=== PATIENT | male | born 1995 | race American Indian/Alaskan Native ===

== ENCOUNTER 2021-04-30 11:06 | Emergency (ER) | payer SELFPAY ==
--- NOTE | 2021-04-30 13:12 | Emergency Department Report ---
ED General Adult HPI - General Chief complaint: Chest Pain Stated complaint: CHEST PAIN/BP HIGH Time Seen by Provider: 04/30/21 12:46 Source: patient Mode of arrival: Ambulatory Limitations: No Limitations - History of Present Illness Initial comments: 25-year-old male who denies any significant past medical history presents to the ER today with complaints of "slight" discomfort in his left chest and elevated blood pressure. Patient states that this chest discomfort started 1 week ago. States it has been intermittent and describes it as sharp in nature. He is unable to describe any worsening factors, but he states that it does improve sometimes after taking aspirin. He reports intermittent episodes of shortness of breath which occurs sometimes with exertion and a mild intermittent dry cough. He denies any wheezing, nausea, vomiting, abdominal pain, fever chills or URI symptoms. He denies any lower extremity swelling or calf pain. Patient denies any history of tobacco use or any illicit drug use. He denies any history of CAD or family history of CAD. He denies history of PE or DVT or risk factors for PE or DVT. He does admit that he used to drink 1 beer daily, but stopped about a month ago and he also admits that he has been having intermittent episodes of where he he has been getting anxious, mainly right before going to work, but he has also noticed that happening on his days off. He denies any worsening stress than usual. He denies any underlying history of psych disorders. He states that he has noticed that his blood pressure has been "up-and-down over the past 2 weeks. The highest measured systolic blood pressure diagnosis was 140s today and highest measured diastolic blood pressure was 94. Complaint: Chest pain/ Elevated Blood pressure -: week(s) (1) - Related Data Allergies Allergy/AdvReac Type Severity Reaction Status Date / Time No Known Allergies Allergy Unverified 04/30/21 11:14 ED Review of Systems ROS: Stated complaint: CHEST PAIN/BP HIGH Other details as noted in HPI Comment: All other systems reviewed and negative Constitutional: denies: chills, fever Eyes: denies: eye pain, eye discharge, vision change ENT: denies: ear pain, throat pain Respiratory: shortness of breath. denies: cough, orthopnea, SOB with exertion, SOB at rest, stridor, wheezing Cardiovascular: chest pain. denies: palpitations, dyspnea on exertion, edema, syncope, paroxysmal nocturnal dyspnea Endocrine: no symptoms reported Gastrointestinal: denies: abdominal pain, nausea, vomiting, diarrhea, constipation, hematemesis, melena, hematochezia Genitourinary: denies: urgency, dysuria, frequency, hematuria, discharge, testicular pain, testicular mass Musculoskeletal: denies: back pain, joint swelling, arthralgia, myalgia Skin: denies: rash, lesions, change in color, change in hair/nails Neurological: denies: headache, weakness, numbness, paresthesias, confusion, abnormal gait, vertigo Psychiatric: denies: anxiety, depression, auditory hallucinations, visual hallucinations, homicidal thoughts, suicidal thoughts Hematological/Lymphatic: denies: easy bleeding, easy bruising, swollen glands ED Past Medical Hx - Past Medical History Previous Medical History?: No - Surgical History Past Surgical History?: No ED Physical Exam - General Limitations: No Limitations General appearance: alert, in no apparent distress, anxious - Head Head exam: Present: atraumatic, normocephalic, normal inspection - Eye Eye exam: Present: normal appearance, PERRL, EOMI Pupils: Present: normal accommodation - ENT ENT exam: Present: normal exam, mucous membranes moist - Neck Neck exam: Present: normal inspection, full ROM - Respiratory Respiratory exam: Present: normal lung sounds bilaterally. Absent: respiratory distress, wheezes, rales, rhonchi, stridor - Cardiovascular Cardiovascular Exam: Present: regular rate, normal rhythm, normal heart sounds - Extremities Exam Extremities exam: Present: normal inspection, full ROM. Absent: calf tenderness - Neurological Exam Neurological exam: Present: alert, oriented X3, CN II-XII intact, normal gait - Psychiatric Psychiatric exam: Present: normal affect, normal mood - Skin Skin exam: Present: intact ED Course Vital Signs 04/30/21 04/30/21 11:20 14:20 Temperature 98.5 F Pulse Rate 84 79 Respiratory 20 16 Rate Blood Pressure 130/83 Blood Pressure 142/87 [Right] O2 Sat by Pulse 99 100 Oximetry ED Medical Decision Making - EKG Data Rate: normal (80) No standard instances Rhythm: arrhythmia - EKG Data Interpretation: normal EKG - Radiology Data Radiology results: report reviewed Patient: NIKA MARTINES MR#: [id number] : 1995 Acct:[id number] Age/Sex: 25 / M ADM Date: 04/30/21 Loc: ED Attending Dr: Ordering Physician: GABRIELLA SHEARER Date of Service: 04/30/21 Procedure(s): XR chest routine 2V Accession Number(s): [id number] cc: GABRIELLA SHEARER Fluoro Time In Minutes: XR chest routine 2V INDICATION / CLINICAL INFORMATION: Chest pain. COMPARISON: None available. FINDINGS: SUPPORT DEVICES: None. HEART /PULMONARY VASCULATURE: No significant abnormality. LUNGS / PLEURA: No significant pulmonary or pleural abnormality. No pneumothorax. ADDITIONAL FINDINGS: No significant additional findings. IMPRESSION: 1. No acute findings. Signer Name: Matthias Rondon MD Signed: 04/30/2021 1:20 PM Workstation Name: [id number] Transcribed By: LYNN Dictated By: MATTHIAS RONDON MD Electronically Authenticated By: MATTHIAS RONDON MD Signed Date/Time: 04/30/211319 DD/ 19 TD/TT: - Medical Decision Making Chest x-ray shows nothing acute. EKG shows no STEMI, or any acute ischemic changes or significant dysrhythmias. Patient does not have any cardiac risk factors and he has a PERC score of 0. Patient does appear anxious on exam which could be contributing to his symptoms. He is not toxic or ill-appearing and is not in any respiratory distress. He is neurologically intact with a normal gait.the history, exam, diagnostic testing and current condition do not suggest that this patient is having acute myocardial infarction, significant arrhythmia, unstable angina, esophageal perforation, pulmonary embolism, aortic dissection, pneumothorax, severe pneumonia, sepsis or other significant pathology that would warrant further testing, continued ED treatment, admission or cardiology or other specialist consultation at this time. His blood pressure today is considered normal and his remaining vital signs are stable. Discussed EKG results and chest x-ray results with patient. Informed them as this time his blood pressure appears to be fine, but that he needs to continue monitoring his blood pressures no more than twice a day at home and keep a record of his readings and he will be given referral information to outpatient PCP for continued monitoring. Informed him that he does appear anxious and that anxiety could be contributing to his fluctuation in his blood pressure and his chest pain at this time there is no indication for additional testing or admission to the hospital. Again recommend follow-up with PCP for referral to cardiology if he continues to have pain but he understands that if his pain worsens to return immediately to the ER. Patient expressed understanding for instructions and agree with plan. Patient was stable at time of discharge. Critical care attestation.: If time is entered above; I have spent that time in minutes in the direct care of this critically ill patient, excluding procedure time. ED Disposition Clinical Impression: Nonspecific chest pain, Anxiety Disposition: HOME / SELF CARE / HOMELESS Is pt being admited?: No Does the pt Need Aspirin: No Condition: Stable Instructions: Nonspecific Chest Pain, Adult, [id number], Managing Anxiety, Adult Additional Instructions: I recommend that you continue monitoring your blood pressure at home, checking it no more than twice a day and keeping a record of it. At this time your blood pressure appears normal, and there is no indication for any emergent treatment but I do recommend that you continue monitoring at home, and follow-up with the primary care doctor listed on your discharge instructions for continued monitoring of your blood pressure. Also bring recordings of your blood pressure with you to the visit. Also recommend follow-up with your primary care doctor especially if you continue having pain in your chest, you can get a referral over to cardiology. Anxiety could also be a contributing factor to your symptoms, and having a PCP you can talk to him about how you have been feeling in regards to feeling anxious. Most importantly if your pain worsens in any way return immediately to the ER. Referrals: MALIHA GIBBS MD [Staff Physician] - 3-5 Days [facility] [Provider Group] - 3-5 Days Forms: Work/School Release Form(ED) Time of Disposition: 14:15 Print Language: TURKISH
--- NOTE | 2021-04-30 13:24 | XRay Report ---
XR chest routine 2V INDICATION / CLINICAL INFORMATION: Chest pain. COMPARISON: None available. FINDINGS: SUPPORT DEVICES: None. HEART /PULMONARY VASCULATURE: No significant abnormality. LUNGS / PLEURA: No significant pulmonary or pleural abnormality. No pneumothorax. ADDITIONAL FINDINGS: No significant additional findings. IMPRESSION: 1. No acute findings. Signer Name: Herb Rondon MD Signed: 04/30/2021 1:20 PM Workstation Name: [id number]
[2021-04-30 14:26] VITALS: BP 142/87
--- NOTE | 2021-05-01 19:00 | Electrocardiograph Report ---
[facility] Test Date: 2021-04-30 Test Time: 11:14:59 Pat Name: NIKA MARTINES Department: Room: Gender: M Rn Examiner: MARGOT : 1995 Requested By: WASHINGTON PETERSON Order Number: [id number] Reading MD: Taina Joseph Measurements Intervals [place] Rate: 80 P: 61 TX: 110 QRS: 72 QRSD: 86 T: 60 QT: 382 QTc: 441 Interpretive Statements Sinus arrhythmia No previous ECG available for comparison Electronically Signed On 05-01-2021 19:00:01 EDT by Taina Joseph
== END 2021-04-30 14:28 | disposition home or self-care (01) ==
LOC: ED 11:06
DX: R07.89 Other chest pain (principal); F41.9 Anxiety disorder, unspecified
CPT/HCPCS: 71046; 93005; 99283